=== PATIENT | male | born 1970 ===

== ENCOUNTER 2022-07-13 07:19 | Day surgery (SDC) | payer OTHER ==
[~2022-07-13] VITALS: Ht 167.6 cm; Wt 88.5 kg
[~2022-07-13 07:19] MED LIST: COZAAR100 MG PO; SIMVASTATIN40 MG PO; VALTREX1000 MG PO
[2022-07-13] MEDS ORDERED: OXYC1TAB9 PO (11:35)
== END 2022-07-13 16:40 | disposition home or self-care (01) ==
LOC: CIR.AMB 07:19
PROVIDERS: ATTEND Surgery
DX: K60.3 Anal fistula (principal); K64.4 Residual hemorrhoidal skin tags; K62.5 Hemorrhage of anus and rectum; R19.4 Change in bowel habit; R19.7 Diarrhea, unspecified; K62.89 Other specified diseases of anus and rectum; I10 Essential (primary) hypertension; Z20.822 Contact with and (suspected) exposure to COVID-19